=== PATIENT | male | born 1985 | race Two or more races ===

== ENCOUNTER 2019-05-08 23:08 | Emergency (ER) | payer SELFPAY ==
[~2019-05-08] VITALS: Ht 190.5 cm; Wt 73.0 kg
[2019-05-09] MEDS ORDERED: LIDOCAINE HCL 1% 20ML VIAL (Pyxis) INJ INFIL ONE (00:30)
[2019-05-09] MEDS ORDERED: TETANUS, DIPHTHERIA, PERTUSSIS VAC/PF 0.5ML (>7YR OLD) IM ONE (00:30)
[2019-05-09] MEDS ORDERED: HYDROCODONE/ACETAMINOPHEN 5/325MG TABLET PO ONE (00:30)
[2019-05-09] MEDS ORDERED: BACITRACIN ZINC OINT UDPKT TOP ONE (02:15)
[2019-05-09 02:45] VITALS: BP 113/84
== END 2019-05-09 02:50 | disposition home or self-care (01) ==
LOC: ER 23:08
DX: S09.8XXA Other specified injuries of head, initial encounter (principal); S61.411A Laceration without foreign body of right hand, initial encounter; S01.01XA Laceration without foreign body of scalp, initial encounter; Y04.0XXA Assault by unarmed brawl or fight, initial encounter; Y93.89 Activity, other specified; Y92.9 Unspecified place or not applicable
CPT/HCPCS: 12002; 70450; 72125; 73130; 73630; 90471; 90715; 99284; J3490; Z7610

== ENCOUNTER 2019-05-23 06:11 | Emergency (ER) | payer SELFPAY ==
[~2019-05-23] VITALS: Ht 190.5 cm; Wt 79.5 kg
[2019-05-23 06:40] VITALS: BP 121/78
== END 2019-05-23 07:40 | disposition home or self-care (01) ==
LOC: ER 06:11
DX: Z48.02 Encounter for removal of sutures (principal); F17.210 Nicotine dependence, cigarettes, uncomplicated
CPT/HCPCS: 99281; Z7610; A4315